=== PATIENT | female | born 1970 | race African-American/Black ===

== ENCOUNTER 2017-03-24 14:10 | Emergency (ER) | payer SELFPAY ==
[~2017-03-24 14:10] MED LIST: BENADRYL25 MG; BENADRYL25 MG PO; DOXYCYCLINE HY100 M1 PO; PHENERGAN PO; PRILOSEC20 M1; PRILOSEC20 M1 PO; ROBITUSSIN A-C S5 ML PO
== END 2017-03-24 17:24 | disposition home or self-care (01) ==
LOC: CFTX 14:10 → CED 14:10 → CFTX 17:21
DX: S16.1XXA Strain of muscle, fascia and tendon at neck level, initial encounter (principal); R51 Headache; F17.210 Nicotine dependence, cigarettes, uncomplicated; X58.XXXA Exposure to other specified factors, initial encounter
CPT/HCPCS: 99283